=== PATIENT | female | born 1960 | race Caucasian/White ===

== ENCOUNTER 2017-02-09 20:40 | Emergency (ER) | payer MEDICARE, OTHER ==
[2017-02-09] MEDS ORDERED: 0.9 % SODIUM CHLORIDE 1,000 ML IV ONE (21:23)
[2017-02-09] MEDS ORDERED: PHARMACY KEY 1 EACH EACH MC ONE (21:23)
[2017-02-09] MEDS ORDERED: PROMETHAZINE HCL 25 MG/ML VIAL ONE (21:23)
[2017-02-09] MEDS ORDERED: KETOROLAC TROMETHAMINE 30 MG/1ML VIAL ONE (21:23)
[2017-02-09] MEDS: 0.9 % SODIUM CHLORIDE 1,000 ML IV SCH (21:30)
[2017-02-09] MEDS: KETOROLAC TROMETHAMINE 30 MG/1ML VIAL IVP ONE (21:30)
[2017-02-09] MEDS: PROMETHAZINE HCL 12.5 MG in 0.9 % SODIUM CHLORIDE 50 ML IV ONE (21:30)
[2017-02-09 21:39] LABS: BASOPHILS % 0.5 (0.0-1.5); EOSINOPHILS % 0.8 % (0.0-6.8); MEAN CORPUSCULAR HEMOGLOBIN 36.7 pg (28.0-34.0); MEAN CORPUSCULAR VOLUME 109.9 fl (80.0-100.0); NEUTROPHILS # 9.5 # k/uL (1.4-7.7)
[2017-02-09 21:50] LABS: eGFR (African) > 60; eGFR (Non-African) > 60
[2017-02-09] MEDS: HALOPERIDOL LACTATE 5 MG/ML VIAL IM ONE (22:40)
[2017-02-09] MEDS: ORPHENADRINE CITRATE 60 MG/2ML IV ONE (22:40)
[2017-02-09 23:15] VITALS: BP 142/95
--- NOTE | 2017-02-10 05:02 | ED Physician Documentation ---
Headache - HISTORIAN Historian: patient - HPI Stated Complaint: h/a Chief Complaint: Headache Additional Information: headache tonight, took tylenol and alcohol Onset: hours (12) Timing: abrupt New Gradual Onset: Yes Exposure To: none Severity: severe Quality: similar to previous Associated Symptoms: sensitivity to light Preceding Symptoms: denies: visual disturbance, scotoma Exacerbated By: light, noise Further Comments: no - ROS NEURO/PSYCH: denies: confusion, anxiety, depression, fainting EYES/ENT: denies: sore throat, difficulty swallowing, sinus pain, drainage CVS/RESP: none. denies: chest pain, shortness of breath, cough GI/: denies: abdominal pain, diarrhea, problems urinating, incontinence MS/SKIN/LYMPH: denies: muscle aches, back pain, rash, skin lesions, swollen glands all systems neg except as marked: Yes - PAST HX Medical History: other (depression, fibromylagia, migraines) Surgical History: other (ortho, aneurysm repair) Immunizations: referred to PCP Allergies/Adverse Reactions: Allergies Allergy/AdvReac Type Severity Reaction Status Date / Time pregabalin [From Lyrica] AdvReac Intermediate Suicidal Verified 02/09/17 21:47 Ideation Home Medications: Ambulatory Orders Medication Instructions Recorded Duloxetine HCl [Cymbalta] 60 mg PO D 02/09/17 LORazepam [Ativan] 1 mg PO HS 02/09/17 - SOCIAL HX Smoking History: cigarettes Alcohol Use: occasionally Drug Use: none - Family HX Family History: none - VITAL SIGNS Vital Signs: Vital Signs Temp Pulse Resp BP Pulse Ox 97.8 F 90 16 142/95 97 02/09/17 20:41 02/09/17 23:12 02/09/17 23:12 02/09/17 23:12 02/09/17 23:12 - REVIEWED ASSESSMENTS Nursing Assessment Reviewed: Yes Vitals Reviewed: Yes Progress - Results/Orders Results/Orders: cbc,cmp, ua, etoh ordered - Progress Progress: pt. given 5 mg haldol im, 30 mg toradol ivp, 1 liter NS, norflex 30 mg ivp, promethazine 12.5 mg ivp with significant improvement of headache Critical Care Note - Critical Care Note Total Time (mins): 0 ED Results Lab/Radiology - Lab Results Lab Results: Lab Results 02/09/17 02/09/17 21:25 21:25 WBC 11.50 K/ul K/ul (4.00-12.00) RBC 3.87 M/ul L M/ul (3.90-5.20) Hgb 14.2 g/dL g/dL (12.0-16.0) Hct 42.5 % % (34.5-46.5) MCV 109.9 fl H fl (80.0-100.0) MCH 36.7 pg H pg (28.0-34.0) MCHC 33.4 g/dL g/dL (30.0-36.0) RDW 14.3 % % (11.3-14.3) Plt Count 382 K/mm3 K/mm3 (130-400) Neut % (Auto) 82.5 % H % (39.0-79.0) Lymph % (Auto) 10.5 % L % (16.0-50.0) [place] % (Auto) 4.0 % % (0.0-11.0) Eos % (Auto) 0.8 % % (0.0-6.8) Baso % (Auto) 0.5 (0.0-1.5) Neut # 9.5 # k/uL H # k/uL (1.4-7.7) Lymph # 1.2 # k/uL # k/uL (0.6-4.0) [place] # 0.5 # k/uL # k/uL (0.0-0.9) Eos # 0.1 # k/uL # k/uL (0.0-0.6) Baso # 0.0 # k/uL # k/uL (0.0-0.5) Reactive Lymphs % 1.7 % % (0.0-5.0) Reactive Lymphs # 0.2 # k/uL # k/uL (0.0-0.8) Sodium 143 mmol/L mmol/L (136-145) Potassium 4.3 mmol/L mmol/L (3.5-5.0) Chloride 109 mmol/L mmol/L (98-110) Carbon Dioxide 28 mmol/L mmol/L (20-32) BUN 12 mg/dL mg/dL (10-26) Creatinine 0.7 mg/dL mg/dL (0.4-1.5) Estimated Creat Clear 107 Est GFR ( Amer) > 60 (60 - ) Est GFR (Non-Af Amer) > 60 (60 - ) Glucose 111 mg/dL H mg/dL (70-99) Calcium 10.4 mg/dL mg/dL (8.5-10.5) Total Bilirubin 0.3 mg/dL mg/dL (0.2-1.2) AST 32 U/L U/L (0-41) ALT 24 U/L U/L (0-45) Alkaline Phosphatase 123 U/L H U/L (46-116) Total Protein 8.6 g/dL H g/dL (6.0-8.5) Albumin 4.7 g/dL g/dL (3.0-5.5) Ethyl Alcohol 145.0 MG/DL H MG/DL (<10.0) - Radiology Radiology Impressions: none ordered, recent ct of head neg - Orders Orders: ED Orders Category Date Time Status Place Saline Lock/IV .PRN Care 02/09/17 21:25 Active CBC/PLATELET/DIFF Routine Lab 02/09/17 21:25 Completed CMP Routine Lab 02/09/17 21:25 Completed DRUG SCREEN URINE MEDICAL ONLY Routine Lab 02/09/17 Ordered ETHANOL MEDICAL USE ONLY Routine Lab 02/09/17 21:25 Completed URINALYSIS Routine Lab 02/09/17 Ordered 0.9 % Sodium Chloride [Normal Saline] 1,000 ml Med 02/09/17 21:30 Discontinued IV .Q1H 0.9 % Sodium Chloride [Normal Saline] 1,000 ml Med 02/09/17 21:23 Discontinued IV .STK-MED Haloperidol Lactate [Haldol] Med 02/09/17 22:26 Discontinued 5 mg IM NOW ONE Ketorolac Tromethamine [Toradol] Med 02/09/17 21:23 Discontinued 30 mg .ROUTE .STK-MED ONE Ketorolac Tromethamine [Toradol] Med 02/09/17 21:25 Discontinued 30 mg IVP NOW ONE Orphenadrine Citrate [Norflex] Med 02/09/17 22:25 Discontinued 30 mg IV NOW ONE [facility] Med 02/09/17 21:23 Discontinued 1 each [facility] .STK-MED ONE Promethazine HCl [Phenergan] Med 02/09/17 21:23 Discontinued 25 mg .ROUTE .STK-MED ONE Promethazine HCl [Phenergan] 12.5 mg Med 02/09/17 21:25 Discontinued 0.9 % Sodium Chloride [Sodium Chloride] 50 ml IV NOW Headache Physical Exam - EXAM General Appearance: moderate distress EENT: no facial swelling, eyes nml inspection, PERRL Neck: normal inspection, thyroid normal, supple Respiratory: no resp distress, chest non-tender, breath sounds normal CVS: reg. rate & rhythm, heart sounds nml Abdomen: non-tender, no organomegaly, nml bowel sounds Skin: color nml, no rash Extremitites: non-tender, normal range of motion, no evidence of injury, no edema - NEURO/PSYCH Higher Functions: alert, oriented x3, nml speech, mood/affect nml Cranial: nml as tested, no evidence of acute CVA Cerebellar: nml as tested, abnml Romberg test Sensorimotor: motor nml, sensation nml Discharge Clincal Impression: Migraine Qualifiers: Migraine type: without aura Status migrainosus presence: with status migrainosus Intractability: intractable Qualified Code(s): G43.011 - Migraine without aura, intractable, with status migrainosus Referrals: Stephanie Matthews FNP [Primary Care Provider] - 2 Days Home Medications: Ambulatory Orders Duloxetine HCl [Cymbalta] 60 mg PO D 02/09/17 LORazepam [Ativan] 1 mg PO HS 02/09/17 Comments: discharged with script for fioricet 1 p.o. qid prn headache #10 no refill Condition: Stable Disposition: 01 HOME, SELF-CARE Decision to Admit: NO Decision Time: 23:00
[2017-02-10 05:30] LABS: AMPHETAMINE NEGATIVE ng/mL (<1000); BARBITURATES NEGATIVE ng/mL (<300); CANNABINOIDS NEGATIVE ng/mL (<50); COCAINE NEGATIVE ng/mL (<150); METHAMPHETAMINE NEGATIVE ng/mL (<1000); METHYLENEDIOXYMETHAMPHETAMINE NEGATIVE ng/mL (<500); OCCULT BLOOD,URINE NEGATIVE (NEGATIVE); UROBILINOGEN URINE 0.2 Eu (0.2-1.0)
== END 2017-02-09 23:01 | disposition home or self-care (01) ==
LOC: ED 20:40
DX: G43.011 Migraine without aura, intractable, with status migrainosus (principal)
CPT/HCPCS: 80053; 81002; 85025; G0480; G0481; J1630; J1885; J2360; J2550; J7030; 80320; 80377; 96361; 96372; 96374; 96375; 99283; S1016